=== PATIENT | male | born 1960 | race Caucasian/White ===

== ENCOUNTER 2025-05-09 11:12 | Emergency (ER) | payer OTHER, SELFPAY ==
[2025-05-09] VITALS (15 sets, daily range): BP systolic 111–122; BP diastolic 52–74; PULSE 63–92; RESP 16; TEMP 36.8; O2SAT 92–98
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
[2025-05-09] MEDS: Ibuprofen 800 MG TAB (11:52)
[2025-05-09] MEDS: Acetaminophen 500 MG TAB 1000 MG PO (11:52)
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
== END 2025-05-09 14:03 | disposition home or self-care (01) ==
PROVIDERS: Emergency Provider Student in an Organized Health Care Education/Training Program
DX: S42.001A Fracture of unspecified part of right clavicle, initial encounter for closed fracture (principal); V19.3XXA Pedal cyclist (driver) (passenger) injured in unspecified nontraffic accident, initial encounter
CPT/HCPCS: 99284; 99283; 71046; 73000; 73030

== ENCOUNTER 2025-05-10 08:29 | Day surgery (SDC) | payer OTHER, SELFPAY ==
[2025-05-10] VITALS (34 sets, daily range): BP systolic 109–136; BP diastolic 58–94; PULSE 45–69; RESP 12–21; TEMP 36–36.8; O2SAT 92–100; BMI 22.1
--- NOTE | 2025-05-10 07:45 | W.PM.DSUDISC ---
Date of service: 05/10/25 Discharge Plan Disposition Patient Disposition: Home Condition: Stable Discharge Details Attending Provider: John Max Primary Care Provider: No,Local Home Meds and New Rx's Prescriptions: New naproxen 250 mg tablet 250 - 500 mg PO BID PRN (Reason: moderate pain and swelling) Qty: 40 0RF oxycodone 5 mg tablet 5 - 10 mg PO .q4-6h MDD 30 mg PRN (Reason: severe pain) Qty: 18 0RF Continued albuterol sulfate 90 mcg/actuation HFA aerosol inhaler 2 inh INHALATION DIRECTED PRN Discharge Instructions Additional Instructions: Surgery: Right distal clavicle ORIF 05/10/25 Activity: Nonweightbearing right upper extremity and use sling for support for 6 weeks when out of the home or up and about. Otherwise, OK to remove sling while resting and support forearm on pillows. Encourage gently increasing shoulder range of motion to prevent stiffness. Keep motion about elbow, wrist, and hand to prevent stiffness. Light use of hand and fingers okay. A physical therapy prescription will be provided in the office at follow-up if needed. Prescriptions: Naproxen 250 mg take 1-2 every 12 hours with a meal as needed for moderate pain Oxycodone 5 mg take 1-2 every every 4-6 hours as needed for moderate-severe pain or discomfort [id number] Tylenol/acetaminophen may be used as needed for mild pain These pain medications may be taken all at once or in different combinations as needed. Dressings: Leave dressing in place until follow-up. Keep clean and dry at all times. Follow-up: Next week with Dr. Max due to travel plans You may take off the leg compression stockings this evening at home. You may also leave them on a few days longer if you have a history of leg swelling or edema. Let us know right away if you develop any redness, drainage, fevers, chest pain, or trouble breathing. Do not drink alcohol or drive for at least 24 hours after anesthesia. Please call the office during business hours with any questions or concerns. Discharge Orders Discharge Orders: Discharge Order (Routine); Ordered 05/10/25 Ordered By: Sade Winter DS: Diagnosis Discharge Diagnosis (1) Fracture of right clavicle: Status: Acute
--- NOTE | 2025-05-10 09:24 | W.PM.OP ---
Operative Note Operative Note PRE-OP DIAGNOSIS: Right displaced distal clavicle fracture PROCEDURE: Right distal clavicle open reduction internal fixation, CPT #47749 SURGEON: John Max MATRIX BATH OPERATOR: Sade Winter ANESTHESIA TYPE: Local By Surgeon, General LMA/ETT and Primary Nerve Block Refer to Anesthesia Record ESTIMATED BLOOD LOSS: 5 Patient was transported to: PACU Implants: Synthes 2.7mm VA LCP clavicle plate system Right lateral LC2 plate with 6x lateral 2.7mm locking screws and 1x medial 2.7mm cortex screw & 3x medial 2.7mm cortex screws Plia FX demineralized bone fiber Arthrex FiberTape cerclage x2 Indications: Please see complete medical record for details. Findings: Compression comminution and bone loss. Cerclage FiberTape double past x 2 with knots tied over the plate after finishing bone fixation. Filled with about 3 cc of PliaFX . Lateral locking plate applied to the medial bone, reduced to the lateral bone, given the defect, lateral couple screw was removed, bone graft placed, reduction reobtained and the same lateral screws were placed and then finished filling laterally. Plate as far laterally to the AC joint, but not into the joint to avoid rotation. Stable construct, but need to be cautious during recovery Procedure Description: In the operating room, general anesthesia was induced. The patient was positioned supine on the operating room table. All bony prominences were well-padded. Preoperative antibiotics were administered. The clavicle was prepped and draped in the usual sterile fashion. The correct patient, procedure, and side of the procedure were all verified prior to incision. The planned lateral clavicle incision was pre-injected with local anesthetic containing epinephrine. The fracture site was approached raising full-thickness flaps down to bone. The incision was extended medially laterally as necessary. Care was taken to preserve soft tissue attachments. The fracture ends were identified. Bone forceps were used to provisionally obtain reduction. There was bone loss due to comminution and compression at the far lateral fracture site. There was notable inferior and anterior comminution. The cerclage passer was then used with fluoroscopic assistance with a FiberLink to double pass a FiberTape around the inferior comminution and through the CC ligaments laterally and then repeated more medially with a TigerTape. The tails and loops were left loose so the plate could fit underneath for tying an extra security over the top of the final construct. A lateral precontoured superior plate was applied and properly positioned over the medial segment and carefully positioned laterally as close to the AC joint as possible to have as many screws in the minimal lateral bone, but not overlapping or impinging on the AC joint. The plate was compressed medial with a cortex screw followed by filling with a few locking screws medially. The plate and bone construct was then reduced to the lateral bone, held in place manually, and the far lateral most 2 drill holes drilled parallel with the distal clavicle at the AC joint bicortically with screws placed. The screws held and maintained the reduction to light testing. The bone defect from bone loss was felt to be too large to leave, but the comminuted bone pieces could not fill the void on their own so the lateral screws were removed, the bone defect filled with demineralized bone fiber, and reduction reobtained and the same lateral screws placed most laterally before filling the remainder of the lateral screw holes with bicortical locking screws. AP, cephalic tilt, and [id number] fluoroscopy were used to confirm appropriate fracture reduction, hardware placement, maintained CC interspace, and no impingement at the AC joint. The plate and fracture were also grossly inspected and demonstrated good stability and fixation strength despite the limited and somewhat soft bone available laterally. The fiber tapes were then each tensioned and then tied with knots directed anteriorly and flush against the bone securing the construct around the inferior bone fragments and through the CC ligaments. The wound was copiously irrigated with normal saline. Deep and subcutaneous tissue was closed in a full-thickness watertight fashion with buried interrupted 2-0 Monocryl. Subcuticular layer was closed using running 3-0 Monocryl. Skin glue was applied over the incision followed by a Mepilex Band-Aid. The patient awoke from anesthesia without complication and was transferred to the recovery room in a stable condition. Date of Procedure: 05/10/25
--- NOTE | 2025-05-10 09:30 | DI.RAD_ITS ---
Exam(s) XR CLAVICLE RT EXAM: XR CLAVICLE RT CLINICAL HISTORY: Fracture of right clavicle. TECHNIQUE: 2D digital imaging was performed. COMPARISON: No exams were available for comparison FINDINGS: Fluoroscopy provided during orthopedic procedure right clavicle. See procedure report for details. IMPRESSION: Radiation exposure index/cumulative dose:Olgar=0.82mGy DATA REPOSITORY: RADIATION DOSE DELIVERED:
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
[2025-05-10] MEDS: Lactated Ringers 1,000 ML 30 ML IV (09:42)
--- NOTE | 2025-05-10 11:06 | ANES.NERVE_ITS ---
Nerve Block Single Injection Procedure Date and Time Date Performed: 05/10/25 Procedure Start: : Location Where Procedure Performed Procedure Location: Day Surgery Unit Reason Performed: Postoperative Analgesia Requesting Provider: John Max Timeout Performed Timeout Performed: Yes Monitoring Used ECG, Blood Pressure, SpO2 and See EMR for corresponding vital signs Sterility Sterility: Hand Hygiene, Surgical Cap, Surgical Mask, Sterile Gloves and Chlorhexidine Sedation Given During Procedure Sedation Given (Indicate Dose Given): Precedex IV Dose:: 12 mcg Patient Mental Status Patient Mental Status: Sedate with meaningful communication Nerve Block 1st Nerve Block: Laterality: Right Block Type: Interscalene Ultrasound Image Saved?: Yes Needle / Catheter Used: 100mm SonoPlex II Local Anesthetic Bolus (Indicate Dose Given): Lidocaine used for local infiltration of skin, Injected in 3-5ml increments after negative blood aspiration, Bupivacaine 0.5% Dose:: 10 ml and Exparel Dose:: 10 ml Additives (Indicate Dose Given): None Ultrasound: Sterile probe cover and gel used Nerve Stimulator: Supplement to Ultrasound use and No twitch or parasthesia noted < 0.5 mA Paresthesia: None Procedure Tolerated: No Complications and Patient tolerated well Procedure Outcome: Successful Performed By: Arley Duque 2nd Nerve Block: Laterality: Right Block Type: Superficial Cervical Plexus Ultrasound Image Saved?: Yes Needle / Catheter Used: 100mm SonoPlex II Local Anesthetic Bolus (Indicate Dose Given): Lidocaine used for local infiltration of skin, Injected in 3-5ml increments after negative blood aspiration and Bupivacaine 0.5% Dose:: 5 ml Additives (Indicate Dose Given): None Ultrasound: Sterile probe cover and gel used Nerve Stimulator: Supplement to Ultrasound use and No twitch or pa rasthesia noted < 0.5 mA Paresthesia: None Procedure Tolerated: No Complications and Patient tolerated well Procedure Outcome: Successful Performed By: Arley Duque
[2025-05-10] MEDS: ceFAZolin 2 GM/50 ML BAG IVPB (11:30)
[2025-05-10] MEDS: TRANEXAMIC ACID/SOD. CHL. 1,000 MG/100 ML BAG 600 MG IVPB (11:40)
[2025-05-10] MEDS: Bupivacaine 0.25% Pres-Free W/EPI 30 ML VIAL (12:03)
--- NOTE | 2025-05-10 14:44 | W.ANESPOSTOP ---
Postoperative Evaluation Date, Time and Location Date Performed: 05/10/25 Time Performed: 14:44 Patient Location: Day Surgery Unit Vital Signs Most Recent Imported Vital Signs: Most Recent Vital Signs Temp Pulse Resp BP Pulse Ox 36.8 C 62 12 127/94 H 92 05/10/25 14:30 05/10/25 14:31 05/10/25 14:31 05/10/25 14:30 05/10/25 14:31 Pain Score Most Recent Pain Score: Most Recent Pain Score Pain Level 0 05/10/25 14:27 Assessment Mental Status: Awake (Alert & Oriented to Patient Baseline) Airway and Respiratory Function: Patent airway with normal (patient baseline) respiratory exam Cardiovascular Function: Hemodynamically Stable Hydration Status: Adequately Hydrated Nausea & Vomiting: No Nausea or Vomiting Pain: Pt. Denies Any Pain Peripheral Nerve Block: Regional nerve block not resolved at time of post operative discharge
== END 2025-05-10 15:45 | disposition home or self-care (01) ==
LOC: SUR 08:30
PROVIDERS: Visit Provider Student in an Organized Health Care Education/Training Program
PROC: (CPT 23515; principal; 2025-05-10 11:15)
DX: S42.001A Fracture of unspecified part of right clavicle, initial encounter for closed fracture (principal); X58.XXXA Exposure to other specified factors, initial encounter; G89.18 Other acute postprocedural pain
CPT/HCPCS: 23515; 64415; 64450; 76000; 73000; J0131; J0665; J0666; J0690; J1100; J2003; J2250; J2405; J2704; J3475

== ENCOUNTER 2025-05-15 11:09 | Outpatient (CLI) | payer OTHER, SELFPAY ==
--- NOTE | 2025-05-15 10:30 | DI.RAD_ITS ---
Exam(s) XR CLAVICLE RT EXAM: XR CLAVICLE RT CLINICAL HISTORY: F/U FRACTURE TECHNIQUE: 2D digital imaging was performed of the right clavicle. Two images were obtained. AP and axial views were obtained. COMPARISON: CR XR CLAVICLE RT from 05/09/2025 XA XR CLAVICLE RT from 05/10/2025 FINDINGS: BONES: The patient has undergone a reduction and internal fixation of the right clavicular fracture. The orthopedic hardware appears stable compared to the intraoperative films. There is no new fracture. No bony destructive lesion is seen. JOINTS: There is mild superior subluxation of the clavicle relative to the acromion. SOFT TISSUE: Normal IMPRESSION: 1. Interval reduction and internal fixation of the distal right clavicular fracture. Alignment of the fracture appears anatomic. 2. Mild superior subluxation of the clavicle relative to the acromion. DATA REPOSITORY: RADIATION DOSE DELIVERED:
== END 2025-05-15 11:10 | disposition home or self-care (01) ==
LOC: DIORS 11:09
PROVIDERS: Visit Provider Student in an Organized Health Care Education/Training Program
DX: S42.001A Fracture of unspecified part of right clavicle, initial encounter for closed fracture (principal)
CPT/HCPCS: 73000

== ENCOUNTER 2025-06-05 15:00 | Outpatient (CLI) | payer OTHER, SELFPAY ==
--- NOTE | 2025-06-05 10:30 | DI.RAD_ITS ---
Exam(s) XR CLAVICLE RT EXAM: XR CLAVICLE RT CLINICAL HISTORY: F/U FRACTURE. TECHNIQUE: 2D digital imaging was performed. Two images were obtained. PE and axial views were obtained. COMPARISON: CR XR CLAVICLE RT from 05/15/2025 FINDINGS: BONES: There are stable post operative changes of internal fixation of the right clavicular fracture present. No new fracture or dislocation. JOINTS: There is no change in alignment of the acromioclavicular joint. The distal clavicle is mildly superiorly located relative to the acromion. SOFT TISSUE: Normal. IMPRESSION: Stable alignment of the right clavicular fracture, orthopedic hardware and acromioclavicular joint. DATA REPOSITORY: RADIATION DOSE DELIVERED:
== END 2025-06-05 15:01 | disposition home or self-care (01) ==
LOC: DIORS 15:27
PROVIDERS: Visit Provider Student in an Organized Health Care Education/Training Program
DX: S42.001A Fracture of unspecified part of right clavicle, initial encounter for closed fracture (principal)
CPT/HCPCS: 73000

== ENCOUNTER 2025-06-19 11:24 | Outpatient (CLI) | payer OTHER, SELFPAY ==
--- NOTE | 2025-06-19 11:00 | DI.RAD_ITS ---
Exam(s) XR CLAVICLE RT EXAM: XR CLAVICLE RT CLINICAL HISTORY: F/U FRACTURE. TECHNIQUE: 2D digital imaging was performed. COMPARISON: CR XR CLAVICLE RT from 06/05/2025 FINDINGS: Two views Stable appearance of the hardware in fracture site at the junction of mid and lateral thirds of the right clavicle. No hardware loosening. No evidence of osteomyelitis. Slight offset of the AC joint is again noted. IMPRESSION: Stable hardware in fracture site appearance Offset of the AC joint again noted. DATA REPOSITORY: RADIATION DOSE DELIVERED:
== END 2025-06-19 11:25 | disposition home or self-care (01) ==
LOC: DIORS 11:24
PROVIDERS: Visit Provider Student in an Organized Health Care Education/Training Program
DX: S42.001A Fracture of unspecified part of right clavicle, initial encounter for closed fracture (principal)
CPT/HCPCS: 73000